=== PATIENT | female | born 1955 ===

== ENCOUNTER → 2019-06-08 14:22 | Outpatient (CLI) | payer OTHER ==
[~2019-06-08 14:22] MED LIST: ALENDRONATE SOD70 MG PO; DILTIAZEM 24HR120 MG PO; NABUMETONE500 MG PO; OSTERA TABLET1 EACH PO; PERCOCET 5/3251 TAB PO; PROBIOTIC1 EAC3 PO
== END | disposition home or self-care (01) ==
LOC: LAB 14:22
DX: R31.29 Other microscopic hematuria (principal)